=== PATIENT | male | born 1945 | race Caucasian/White ===

== ENCOUNTER 2018-09-13 05:00 | Inpatient (IN) ==
[2018-09-10 19:25] LABS: Appearance,Urine CLEAR; Bacteria,Urine 0 /hpf (0); Bilirubin,Urine NEG (NEG); Color,Urine YELLOW; Glucose,Urine (UA) NEGATIVE (NEG); Leukocyte Esterase,Urine NEG /uL (NEG); Mucus,Urine FEW /hpf (0); Protein,Urine NEG (NEG); Specific Gravity,Urine 1.023 (1.000-1.035); Urine Blood 0.2 mg/dL (<0.03); Urine RBC 2 /hpf (0-1); Urine Squamous Epithelial Cell < 1 /hpf (0-4); Urine WBC < 1 /hpf (0-4); Urobilinogen,Urine NEG (NEG)
[2018-09-10 20:28] LABS: Basophils # (Auto) 0.1 K/mcL (0.0-0.3); Basophils % (Auto) 0.7 % (0.0-2.0); Eosinophils # (Auto) 0.1 K/mcL (0.0-0.7); Eosinophils % (Auto) 0.8 % (0.0-7.0); Granulocytes % (Auto) 76.1 % (38.0-78.0); Lymphocytes # (Auto) 1.5 K/mcL (1.5-4.8); Lymphocytes % (Auto) 13.5 % (15.5-49.0); Mean Cell Volume 96.4 fL (80.0-100.0); Mean Corpuscular Hemoglobin 31.8 pg (26.0-34.0); Monocytes % (Auto) 8.9 % (1.0-12.0); Platelet Count 199 K/mcL (140-440); RBC 5.07 M/mcL (4.50-5.90); Red Cell Distribution Width 15.3 % (11.5-14.5)
[2018-09-10 20:37] LABS: Blood Urea Nitrogen 33 mg/dl (8-23)
[2018-09-10 20:51] LABS: Estimated Average Glucose(eAG) 120 mg/dL; Hemoglobin A1C 5.8 % HGB (4.0-6.0)
[2018-09-13] MEDS ORDERED: ACETAMINOPHEN 500 MG TABLET PO SCH (07:00)
[2018-09-13] MEDS ORDERED: oxyCODONE 10 MG TAB.ER.12H PO SCH (07:00)
[2018-09-13] MEDS ORDERED: CELECOXIB 200 MG CAPSULE PO SCH (07:00)
[2018-09-13] MEDS ORDERED: ceFAZolin 1 GM VIAL IV SCH (07:00)
[2018-09-13] MEDS ORDERED: PREGABALIN 75 MG CAPSULE PO SCH (07:00)
[2018-09-13] MEDS ORDERED: TRANEXAMIC ACID 1,000 MG/10 ML VIAL IV ONE (07:30)
[2018-09-13] MEDS ORDERED: ONDANSETRON 4 MG/2 ML VIAL IV ONE (07:30)
[2018-09-13] MEDS ORDERED: DEXAMETHASONE 10 MG/ML VIAL IV ONE (07:30)
[2018-09-13] MEDS ORDERED: LIDOCAINE HCL/PF 100 MG/5 ML SYRINGE IV ONE (07:30)
[2018-09-13] MEDS ORDERED: ROPIVACAINE HCL/PF 30 ML VIAL IJ ONE (07:30)
[2018-09-13] MEDS ORDERED: MIDAZOLAM 5 MG/5 ML VIAL IV ONE (07:30)
[2018-09-13] MEDS ORDERED: SUCCINYLCHOLINE 20 MG/ML ML IV ONE (07:30)
[2018-09-13] MEDS ORDERED: PROPOFOL 200 MG/20 ML VIAL IV ONE (07:30)
[2018-09-13] MEDS ORDERED: fentaNYL 250 MCG/5 ML VIAL IV ONE (07:30)
[2018-09-13] MEDS ORDERED: GENTAMICIN SULFATE 800 MG/20 ML VIAL IR ONE (07:54)
[2018-09-13] MEDS ORDERED: ONDANSETRON 4 MG/2 ML VIAL IV PRN ×2 (08:21→08:52)
[2018-09-13] MEDS ORDERED: METOPROLOL TARTRATE 5 MG/5 ML VIAL IV PRN (08:21)
[2018-09-13] MEDS ORDERED: diphenhydrAMINE 50 MG/ML VIAL IV PRN (08:21)
[2018-09-13] MEDS ORDERED: HYDROmorphone 2 MG/ML VIAL IV PRN ×2 (08:21→08:52)
[2018-09-13] MEDS ORDERED: MEPERIDINE 25 MG/ML SYRINGE IV PRN (08:21)
[2018-09-13] MEDS ORDERED: fentaNYL 100 MCG/2 ML VIAL IV PRN (08:21)
[2018-09-13] MEDS ORDERED: ePHEDrine 50 MG/ML AMPUL IV PRN (08:21)
[2018-09-13] MEDS ORDERED: IPRATROPIUM/ALBUTEROL 3 ML AMPUL.NEB NEB PRN (08:21)
[2018-09-13] MEDS ORDERED: NALOXONE HCL 0.4 MG/ML VIAL IV PRN (08:21)
[2018-09-13] MEDS ORDERED: FLUMAZENIL 0.1 MG/ML ML IV PRN (08:21)
[2018-09-13] MEDS ORDERED: ATROPINE SULFATE 0.4 MG/ML VIAL IV PRN (08:21)
[2018-09-13] MEDS ORDERED: METHOCARBAMOL 1,000 MG/10 ML VIAL IV PRN (08:21)
[2018-09-13] MEDS ORDERED: LACTATED RINGERS 1,000 ML IV SCH (08:30)
--- NOTE | 2018-09-13 08:51 | Brief Operative Note ---
Date of procedure: 09/13/18 Pre-op diagnosis: Left Shoulder severe djd and bicep tear Procedure: Left reverse tsa with bicep tenodesis Grafts/Implants: Yes Anesthesia: GETA Complications: none Surgeon: Domenic Dickson [employer] Professional: Sanford Chase Estimated blood loss (cc): 120 Specimens Removed/Pathology: none sent Condition: stable Disposition: PACU
[2018-09-13] MEDS ORDERED: HYDROcodone/APAP 10/325MG TABLET PO PRN (08:52)
[2018-09-13] MEDS ORDERED: BENZOCAINE/MENTHOL 1 LOZENGE PO PRN (08:52)
[2018-09-13] MEDS ORDERED: KETOROLAC 15 MG/ML VIAL IV PRN (08:52)
[2018-09-13] MEDS ORDERED: FLEETS ADULT ENEMA PR PRN (08:52)
[2018-09-13] MEDS ORDERED: POLYETHYLENE GLYCOL 3350 17 GM PACKET PO PRN (08:52)
[2018-09-13] MEDS ORDERED: TRANEXAMIC ACID 1,000 MG/10 ML VIAL IV SCH (08:52)
[2018-09-13] MEDS ORDERED: ACETAMINOPHEN 325 MG TABLET PO PRN (08:52)
[2018-09-13] MEDS ORDERED: MAGNESIUM HYDROXIDE 30 ML ORAL.SUSP PO PRN (08:52)
[2018-09-13] MEDS ORDERED: BISACODYL 10 MG SUPP.RECT PR PRN (08:52)
--- NOTE | 2018-09-13 09:29 | Operative Note ---
DATE OF OPERATION: 09/13/2018 PREOPERATIVE DIAGNOSIS: Left shoulder with severe degenerative arthrosis, biceps tendinopathy loose bodies and rotator cuff arthropathy. POSTOPERATIVE DIAGNOSIS: Left shoulder with severe degenerative arthrosis, biceps tendinopathy loose bodies and rotator cuff arthropathy. PROCEDURE: Left reverse total shoulder and biceps tenodesis. SURGEON: Domenic Dickson MD NUCLEAR WASTE PROCESS OPERATOR: Sanford Chase PA-C ANESTHESIA: General LMA anesthesia. COMPLICATIONS: None. ESTIMATED BLOOD LOSS: About 100 mL DESCRIPTION OF PROCEDURE: The patient was brought to the operating room and put to sleep with general LMA anesthesia. Once asleep, the patient had the left arm sterilely prepped and draped in the usual sterile fashion. A timeout was performed and we confirmed the operative site. Preop antibiotics and tranexamic acid had been given. A deltopectoral approach was placed. We then retracted the deltoid and cephalic vein posteriorly. I then released the subscap muscle and conjoined tendon retracted medially. We then dislocated the humeral head which had severe wear in the central portion with multiple loose bodies that were quite evident. The capsule was released posteriorly and then we performed a neck cut using the alignment guide. Once this was done, we then subluxed the head posteriorly, performed a 360 degree capsular release and a biceps tendinopathy. We repaired the biceps tendon and the bicipital groove and attached this to the pec major muscle, roughened the bony surface and a #2 FiberWire was used with a noncutting needle. Once repaired with [id number] stitches, we irrigated thoroughly and then released the labrum around the glenoid. Once done, we then placed a central screw hole in the glenoid. A pin was placed centrally and then we reamed up to the size 40. A 48 hand shaver was placed just to sweep the inferior border, releasing the capsule inferiorly a cm away from the bone to ensure adequate motion. We then placed a metaglene centrally and this was with a 40 mm central screw. Peripheral screws measured 32, 32 and 28, all with excellent purchase and bone quality. We placed a 40 mm concentric head with 2 mm of offset. Once done, I irrigated thoroughly and then prepared the humerus. Once this was done, we then reamed up to the size 15 and implanted a 15 after trialing with a standard poly. This was placed at about the level of the rotator cuff insertion and this reduced nicely. This gave the patient plenty of looseness and play because the patient's shoulder was quite tight. We took the shoulder through the range of motion to make sure that it was adequate. We irrigated thoroughly, stopped any bleeding and then closed the deltopectoral interval with 2-0 Vicryl and closed the skin with 2-0 Vicryl, as well as adhesive closure. The patient tolerated this well without complication. RBH:timmy Job ID: [id number] Doc ID: [id number] Domenic Dickson MD
--- NOTE | 2018-09-13 10:21 | XRay Report ---
CLINICAL INFORMATION: Post-Op Total Shoulder COMPARISON: None. FINDINGS: Shoulder prostheses is anatomically aligned. No osseous abnormality. Soft tissues swelling seen - as expected. IMPRESSION: Negative Interpreted and Authenticated by: Sebastian Krishna 09/13/18
[2018-09-13] MEDS: ASPIRIN 81 MG TAB.CHEW PO SCH (11:49)
[2018-09-13] MEDS: DOCUSATE SODIUM 100 MG CAPSULE PO SCH ×2 (11:49→21:01)
[2018-09-13] MEDS: 0.45 % SODIUM CHLORIDE 1,000 ML IV SCH ×2 (11:49→20:56)
[2018-09-13] MEDS ORDERED: DIAZEPAM 5 MG TABLET PO PRN (14:27)
[2018-09-13] MEDS: 0.9 % SODIUM CHLORIDE 10 ML SYRINGE IV SCH ×2 (14:54→22:54)
[2018-09-13] MEDS: ceFAZolin 1 GM VIAL IV SCH ×2 (15:02→22:54)
[2018-09-13] MEDS: NICOTINE 21 MG PATCH TOPICAL SCH (17:46)
[2018-09-13] MEDS ORDERED: TEMAZEPAM 15 MG CAPSULE PO PRN (21:00)
[2018-09-13] MEDS ORDERED: SENNOSIDES 1 TABLET PO SCH (21:00)
[2018-09-14] MEDS: 0.9 % SODIUM CHLORIDE 10 ML SYRINGE IV SCH (05:00)
--- NOTE | 2018-09-14 07:08 | Orthopedic Progress Note ---
Subjective Patient information: Note initiated : 09/14/18 at 7:07 am Service Date, if different from initiated Date: [] Patient: Milton Evans 73 y/o M admitted on 09/13/18 for Left Reverse Total S[place]oulder Arthroplasty with . Chief Complaint: [Pt is stable this morning on post operative day 1 without any significant concerns or complaints. Patients vital signs have remained stable. Patients dressing is dry and is grossly intact from a neurovascular and motor standpoint. Patients 10 point ROS is otherwise negative. ] Objective Vital signs: Vital Signs Temp Pulse Resp BP Pulse Ox 09/14/18 03:43 97.6 F 72 18 114/62 96 09/13/18 23:35 97.8 F 83 18 90/52 94 09/13/18 19:39 97.8 F 96 H 20 118/72 94 09/13/18 16:00 97.8 F 16 107/63 95 09/13/18 11:39 103/68 95 09/13/18 11:09 109/68 95 09/13/18 10:54 130/74 96 09/13/18 10:38 125/77 94 09/13/18 10:23 115/59 94 09/13/18 10:08 132/75 92 09/13/18 10:00 97.6 F 81 15 132/68 94 09/13/18 09:42 97.6 F 86 14 142/38 91 09/13/18 09:37 97.6 F 91 H 17 142/62 90 09/13/18 09:32 97.6 F 88 15 142/76 90 09/13/18 09:27 97.6 F 88 16 146/68 91 09/13/18 09:22 97.6 F 88 17 135/82 91 09/13/18 09:17 97.7 F 85 18 146/75 92 09/13/18 09:12 97.7 F 76 15 135/62 100 Intake and Output 09/13/18 09/14/18 09/14/18 21:59 05:59 13:59 Intake Total 240 / 240 200 / 200 Output Total 475 / 475 350 / 350 200 / 200 Balance -235 / -235 -150 / -150 -200 / -200 Intake: Oral 240 / 240 200 / 200 Output: Void Amount 475 / 475 350 / 350 200 / 200 Other: Meal Dinner Percent of Meal Consumed 100% Feeding Ability Independent Urine Appearance Clear Clear Urine Color Bright Yellow Bright Yellow Weight 272 lb Intake & Output: Intake & Output 09/13/18 09/14/18 09/14/18 21:59 05:59 13:59 Intake Total 240 / 240 200 / 200 Output Total 475 / 475 350 / 350 200 / 200 Balance -235 / -235 -150 / -150 -200 / -200 Weight 272 lb Intake: Oral 240 / 240 200 / 200 Output: Void Amount 475 / 475 350 / 350 200 / 200 Other: Meal Dinner Percent of Meal Consumed 100% Feeding Ability Independent Urine Appearance Clear Clear Urine Color Bright Yellow Bright Yellow Incision: Yes healing Incision clean and dry: Yes Dressing: Yes clean Weight bearing status: full Neurological exam IM: Yes CN II-XII intact Extremities exam IM: Yes neurovascular intact - Labs CBC & BMP: 09/10/18 16:56 09/10/18 16:55 Labs: Orthopedic Labs 09/10/18 16:56 PT 12.7 INR 1.0 APTT 35 09/10/18 16:56 Hgb 16.1 Hct 48.9 Assessment and Plan (1) History of reverse total replacement of left shoulder joint The patient has been educated regarding dressing care, Physical Therapy recommendations, home exercises, restrictions, and follow up appointments. The patient has had all necessary DME prescribed. The patient has remained relatively stable during their hospital course. Leave Dermabond patch intact until followup Status: Acute
--- NOTE | 2018-09-14 07:10 | Discharge Summary ---
Ortho Discharge - TSA - Patient Instructions Diet: Regular Diet Activity: activity as tolerated, weight bearing as tolerated Total Shoulder Protocol: Leave immobilizer in place except for bathing and ROM. Abduction pillow. Continue to wear sling until seen by physician. Codman Pendulum : These exercises use momentum produced by your body to move your shoulder joint. Bend your knees and shift your weight to your front leg, then back, allowing your arm to swing in the same directions. Using the same technique, alternately shift your weight between your right and left legs, allowing your arm to swing from side to side. These exercises are also performed in counterclockwise and clockwise circular motions. Typically these exercises are performed several times per day, for a set number repetitions or minutes, such as 20 times in a row or 5 minutes at a time. Dressing Care: May shower in 2 days - Problem Maintenance (1) History of reverse total replacement of left shoulder joint Status: Acute - Follow Up Plan Disposition: Home, Self-Care Prognosis: Good Rehab Potential: Good I certify that the patient requires SNF services: No Overall status at discharge: patient is progressing back to baseline - Orders For Discharge Prescriptions: Docusate Sodium [Colace] 100 mg PO BID #60 cap HYDROcodone/APAP 10/325MG [[place] 10-325Mg] 1 - 2 tab PO Q4HP PRN #75 tab PRN Reason: Pain Level 3-6
[2018-09-14] MEDS ORDERED: metFORMIN 500 MG TABLET PO SCH (08:00)
[2018-09-14] MEDS: ASPIRIN 81 MG TAB.CHEW PO SCH (08:50)
[2018-09-14] MEDS: DOCUSATE SODIUM 100 MG CAPSULE PO SCH (08:51)
[2018-09-14] MEDS ORDERED: PIOGLITAZONE 15 MG TABLET PO SCH (09:00)
[2018-09-14] MEDS ORDERED: SIMVASTATIN 40 MG TABLET PO SCH (09:00)
[2018-09-14] MEDS ORDERED: HYDROCHLOROTHIAZIDE 25 MG TABLET PO SCH (09:00)
[2018-09-14] MEDS ORDERED: LOSARTAN 50 MG TABLET PO SCH (09:00)
[2018-09-14] MEDS: NICOTINE 21 MG PATCH TOPICAL SCH (10:00)
== END 2018-09-14 12:45 | disposition home or self-care (01) | DRG 483 ==
LOC: MEDSUR 05:00
PROVIDERS: ADMIT Orthopaedic Surgery; ATTEND Orthopaedic Surgery
CPT/HCPCS: 97161